=== PATIENT | female | born 1985 | race Hispanic/Latino ===

== ENCOUNTER 2017-07-01 17:59 | Emergency (ER) | payer BC ==
[2017-07-01 18:19] VITALS: BMI 28.1
[2017-07-01 18:21] VITALS: O2SAT 100
--- NOTE | 2017-07-01 19:27 | C.PDOC ---
History Of Present Illness Patient is a 32 y/o female who presents to the ED referred by urgent care with a complaint of right-sided intermittent abdominal pain since this morning. Patient notes pain is not intense, but enough to prompt visit to urgent care. Urgent care was unable to draw blood and referred patient on basis of possible dehydration and gallbladder issues. Patient notes decreased thirst; denies vomiting. Patient admits to feeling tired. Patient also notes benign pituitary tumor in which she takes medications for. No other physical complaints at this time. Time Seen by Provider: 07/01/17 19:04 Chief Complaint (Nursing): Abdominal Pain History Per: Patient History/Exam Limitations: no limitations Onset/Duration Of Symptoms: Hrs (this morning) Current Symptoms Are (Timing): Still Present Location Of Pain/Discomfort: RUQ, RLQ Associated Symptoms: denies: Vomiting Recent travel outside of the [place]: No Past Medical History Reviewed: Historical Data, Nursing Documentation, Vital Signs Vital Signs: Last Vital Signs Temp 97.9 F 07/01/17 20:40 Pulse 83 07/01/17 20:40 Resp 18 07/01/17 20:40 BP 127/81 07/01/17 20:40 Pulse Ox 100 07/01/17 20:40 - Medical History Other PMH: benign pituitary tumor Surgical History: No Surg Hx Family History: States: No Known Family Hx - Social History Hx Tobacco Use: No Hx Alcohol Use: No Hx Substance Use: No - Immunization History Hx Tetanus Toxoid Vaccination: No Hx Influenza Vaccination: No Hx Pneumococcal Vaccination: No Review Of Systems Gastrointestinal: Positive for: Abdominal Pain (right-sided). Negative for: Vomiting Physical Exam - Physical Exam Appears: Well, Non-toxic, No Acute Distress Skin: Normal Color, Dry Head: Atraumatic, Normacephalic Oral Mucosa: Moist Chest: Symmetrical Cardiovascular: Rhythm Regular, No Murmur Respiratory: Normal Breath Sounds, No Rales, No Rhonchi, No Wheezing Gastrointestinal/Abdominal: Soft, Tenderness (minimal to RUQ) Neurological/Psych: Oriented x3, Normal Speech, Normal Cognition ED Course And Treatment - Laboratory Results Result Diagrams: 07/01/17 19:34 07/01/17 19:34 O2 Sat by Pulse Oximetry: 100 Progress Note: US abdomen and blood work ordered. Disposition - Disposition Disposition: HOME/ ROUTINE Disposition Time: 21:00 Condition: STABLE Forms: [employer] (Nepali) - Clinical Impression Clinical Impression: Abdominal pain - Scribe Statement The provider has reviewed the documentation as recorded by the Scribe Lashell Kelley All medical record entries made by the Scribe were at my direction and personally dictated by me. I have reviewed the chart and agree that the record accurately reflects my personal performance of the history, physical exam, medical decision making, and the department course for this patient. I have also personally directed, reviewed, and agree with the discharge instructions and disposition.
[2017-07-01 19:42] LABS: RBC URINE < 1 /hpf (0-3); URINE BILIRUBIN NEGATIVE (NEGATIVE); URINE BLOOD NEGATIVE (NEGATIVE); URINE COLOR Colorless (YELLOW); URINE GLUCOSE (UA) NORMAL (Normal); URINE KETONE NEGATIVE (NEGATIVE); URINE LEUKOCYTE ESTERASE NEG Leu/uL (Negative); URINE PROTEIN NEGATIVE (NEGATIVE); URINE UROBILINOGEN NORMAL mg/dL (0.2-1.0)
[2017-07-01 19:52] LABS: BASO # 0.1 K/uL (0.0-0.2); BASO % 0.8 % (0.0-2.0); EOS # 0.1 K/uL (0.0-0.7); EOS % 1.1 % (0.0-4.0); HEMATOCRIT 38.8 % (34.0-47.0); LYMPH # 2.4 K/uL (1.0-4.3); LYMPH % 34.2 % (20.0-40.0); MEAN CELL VOLUME 87.3 fL (81.0-99.0); MEAN CORPUSCULAR HEMOGLOBIN 30.4 pg (27.0-31.0); MEAN CORPUSCULAR HGB CONC 34.8 g/dL (33.0-37.0); MEAN PLATELET VOLUME 8.9 fL (7.2-11.7); MONO # 0.4 K/uL (0.0-0.8); MONO % 5.9 % (0.0-10.0); RED CELL DISTRIBUTION WIDTH 12.3 % (11.5-14.5); WHITE BLOOD COUNT 6.9 K/uL (4.8-10.8)
[2017-07-01 19:54] LABS: ALB/GLOB RATIO 1.5 (1.0-2.1); ALKALINE PHOSPHATASE 43 U/L (38-126); ALT/SGPT 11 U/L (9-52); AST/SGOT 22 U/L (14-36); BILIRUBIN,TOTAL 0.9 mg/dL (0.2-1.3); BLOOD UREA NITROGEN 10 mg/dL (7-17); CALCIUM 8.2 mg/dl (8.6-10.4); CARBON DIOXIDE 26 mmol/L (22-30); CHLORIDE 98 mmol/L (98-107); GFR AFRICAN-AMERICAN > 60; GLUCOSE,RANDOM 126 mg/dL (65-105); POTASSIUM 3.5 mmol/L (3.6-5.2); SODIUM 132 mmol/L (132-148); TOTAL PROTEIN 6.6 g/dL (6.3-8.3)
--- NOTE | 2017-07-01 20:28 | US ---
EXAM: US Abdomen Limited, Right Upper Quadrant EXAM DATE/TIME: Exam ordered 07/01/2017 7:17 PM CLINICAL HISTORY: 32 years old, female; Pain; Abdominal pain; Other: Ruq pain; Additional info: Abd pain TECHNIQUE: Real-time ultrasound of the right upper quadrant with image documentation. COMPARISON: No relevant prior studies available. FINDINGS: Liver: The liver measures 15 cm in craniocaudal span. The echotexture liver is heterogeneous. There is normal blood flow direction the main portal vein. Phasic flow is noted within the left hepatic vein. Gallbladder: Unremarkable. No gallstones. Common bile duct: Common bile that measures 4 mm. No stones. No dilation. Pancreas: Unremarkable as visualized. Right kidney: The right kidney measures 10.9 x 3.8 x 3.5 cm. The lower pole the right kidney is not clearly seen due to bowel gas. No stones. IMPRESSION: 1. No gallstone. 2. Mild heterogeneous echotexture of the liver. This may be technical in nature. Underlying mild infiltrative process such as fatty infiltration is another consideration. 3. Suboptimal visualization of the lower pole right kidney due to bowel gas. No hydronephrosis..
[2017-07-01 20:41] VITALS: BP 127/81; PULSE 83; RESP 18; TEMP 97.9
== END 2017-07-01 21:15 | disposition home or self-care (01) ==
LOC: C.ER 17:59
DX: R10.9 Unspecified abdominal pain (principal)